=== PATIENT | male | born 1955 | race Caucasian/White ===

== ENCOUNTER 2019-01-16 03:37 | Emergency (ER) | payer MEDICARE, OTHER ==
[~2019-01-16] VITALS: Ht 180.3 cm; Wt 73.0 kg
[~2019-01-16 03:37] MED LIST: PIMO2TAB3 PO
[2019-01-16 03:58] VITALS: BP 135/101
[2019-01-16] MEDS ORDERED: meclizine 12.5mg tablet PO ONE (04:05)
[2019-01-16] MEDS ORDERED: ondansetron 4mg rapidly disintigrating tab PO ONE (04:05)
[2019-01-16] MEDS ORDERED: MECL12.584 PO (04:07)
== END 2019-01-16 04:34 | disposition home or self-care (01) ==
LOC: ER 03:39
DX: H81.10 Benign paroxysmal vertigo, unspecified ear (principal); M19.90 Unspecified osteoarthritis, unspecified site; Z79.899 Other long term (current) drug therapy; Z59.0 Homelessness
CPT/HCPCS: 93005; 99283; J8597

== ENCOUNTER 2021-02-19 19:13 | Emergency (ER) | payer BC, MEDICARE ==
[~2021-02-19] VITALS: Ht 180.3 cm; Wt 67.3 kg
[~2021-02-19 19:13] MED LIST changes: +MECL-226 PO
[2021-02-19 23:26] VITALS: BP 143/86
== END 2021-02-19 23:49 | disposition home or self-care (01) ==
LOC: ER 19:15
DX: M79.672 Pain in left foot (principal); M19.90 Unspecified osteoarthritis, unspecified site; Z87.01 Personal history of pneumonia (recurrent); Z79.899 Other long term (current) drug therapy; Z85.51 Personal history of malignant neoplasm of bladder; Z59.0 Homelessness
CPT/HCPCS: 73610; 99283

== ENCOUNTER 2021-04-19 09:11 | Emergency (ER) | payer BC, MEDICARE ==
[~2021-04-19] VITALS: Ht 180.3 cm; Wt 65.8 kg
[2021-04-19 09:33] VITALS: BP 147/100
[2021-04-19] MEDS ORDERED: meclizine 12.5mg tablet PO ONE (10:00)
[2021-04-19] MEDS ORDERED: ondansetron 4mg rapidly disintigrating tab PO ONE (10:00)
== END 2021-04-19 10:39 | disposition home or self-care (01) ==
LOC: ER 09:11
DX: R42 Dizziness and giddiness (principal); F17.210 Nicotine dependence, cigarettes, uncomplicated; R11.0 Nausea; Z56.0 Unemployment, unspecified
CPT/HCPCS: 93005; 99283; J8597

== ENCOUNTER 2021-04-24 15:44 | Emergency (ER) | payer BC ==
[~2021-04-24] VITALS: Ht 180.3 cm; Wt 67.3 kg
[2021-04-24 16:14] VITALS: BP 134/92
[2021-04-24] MEDS ORDERED: ondansetron 4mg rapidly disintigrating tab PO ONE (18:35)
[2021-04-24] MEDS ORDERED: meclizine 12.5mg tablet PO ONE (18:35)
== END 2021-04-25 05:55 | disposition home or self-care (01) ==
LOC: ER 15:45
DX: R42 Dizziness and giddiness (principal); M19.90 Unspecified osteoarthritis, unspecified site; Z87.01 Personal history of pneumonia (recurrent); Z60.2 Problems related to living alone; Z59.0 Homelessness; Z79.899 Other long term (current) drug therapy
CPT/HCPCS: 99283; J8597; 93005

== ENCOUNTER → 2021-05-28 | Emergency (ER) | payer BC ==
[~2021-05-28] VITALS: Ht 180.3 cm; Wt 68.0 kg
[~2021-05-28] MED LIST changes: +NO HOME MEDS
[2021-05-28 23:37] VITALS: BP 137/85
== END | disposition left against medical advice (07) ==
LOC: ER 23:33
DX: R42 Dizziness and giddiness (principal); Z53.21 Procedure and treatment not carried out due to patient leaving prior to being seen by health care provider

== ENCOUNTER 2021-06-20 13:51 | Emergency (ER) | payer BC ==
[~2021-06-20] VITALS: Ht 180.3 cm; Wt 65.0 kg
[2021-06-20 18:27] VITALS: BP 148/93
[2021-06-21] MEDS ORDERED: MECL-226 PO (01:13)
[2021-06-21] MEDS ORDERED: NAPR-56 PO (01:13)
[2021-06-21] MEDS ORDERED: ONDA4TAB6 PO (01:13)
== END 2021-06-20 20:04 | disposition left against medical advice (07) ==
LOC: ER 13:51
DX: R10.32 Left lower quadrant pain (principal); R42 Dizziness and giddiness; R11.0 Nausea; K46.9 Unspecified abdominal hernia without obstruction or gangrene; Z53.21 Procedure and treatment not carried out due to patient leaving prior to being seen by health care provider

== ENCOUNTER 2021-06-20 22:24 | Emergency (ER) | payer BC ==
[~2021-06-20] VITALS: Ht 180.3 cm; Wt 63.3 kg
[2021-06-20 22:29] VITALS: BP 132/79
[2021-06-21] MEDS ORDERED: naproxen 500mg tablet PO ONE (01:10)
[2021-06-21] MEDS ORDERED: meclizine 12.5mg tablet PO ONE (01:10)
[2021-06-21] MEDS ORDERED: ondansetron 4mg rapidly disintigrating tab PO ONE (01:10)
[2021-06-21] MEDS ORDERED: ONDA4TAB6 PO (01:13)
[2021-06-21] MEDS ORDERED: MECL-226 PO (01:13)
[2021-06-21] MEDS ORDERED: NAPR-56 PO (01:13)
== END 2021-06-21 01:25 | disposition home or self-care (01) ==
LOC: ER 22:25
DX: K40.90 Unilateral inguinal hernia, without obstruction or gangrene, not specified as recurrent (principal); G89.29 Other chronic pain; F17.200 Nicotine dependence, unspecified, uncomplicated; Z76.0 Encounter for issue of repeat prescription; Z59.0 Homelessness
CPT/HCPCS: 99284; J8597

== ENCOUNTER 2022-06-14 14:12 | Emergency (ER) | payer BC ==
[~2022-06-14] VITALS: Ht 180.3 cm; Wt 67.3 kg
[~2022-06-14 14:12] MED LIST changes: -NO HOME MEDS; +ONDA4TAB6 PO; -PIMO2TAB3 PO
[2022-06-14 16:02] LABS: URINE AMPHETAMINE SCREEN NEGATIVE (Neg); URINE BARBITUATE SCREEN NEGATIVE (Neg); URINE BENZODIAZEPINES SCREEN NEGATIVE (Neg); URINE CANNABINOID SCREEN NEGATIVE (Neg); URINE COCAINE SCREEN NEGATIVE (Neg); URINE METHADONE SCREEN NEGATIVE (Neg); URINE OPIATE SCREEN NEGATIVE (Neg); URINE PHENCYCLIDINE SCREEN NEGATIVE (Neg)
[2022-06-14 16:06] LABS: CLARITY,URINE SLIGHTLY CLOUDY (Clear); GLUCOSE, URINE NEGATIVE (Neg); KETONES,URINE NEGATIVE (Neg); LEUKOCYTE ESTERASE ,URINE TRACE (Neg); NITRITES, URINE NEGATIVE (Neg); OCCULT BLOOD,URINE NEGATIVE (Neg); PH,URINE 5.5 (4.8-8.0); PROTEIN,URINE TRACE mg/dl (Neg); UROBILINOGEN,URINE 0.2 E.U/dL (0.2-1.0)
[2022-06-14 16:07] LABS: COLOR,URINE DARK YELLOW (Yellow); UA COLLECTION TYPE VOIDED
[2022-06-14 16:12] LABS: BASOPHILS % (AUTO) 0.7 % (0-1); EOSINOPHILS % (AUTO) 0.7 % (0-6); HEMOGLOBIN 12.6 g/dl (14.0-17.9); LYMPHOCYTES # (AUTO) 1.2 X10'3 (1.1-4.8); LYMPHOCYTES % (AUTO) 18.9 % (21-51); MEAN CORPUSCULAR HEMOGLOBIN 30.9 PG (27.0-31.0); MEAN CORPUSCULAR HGB CONC 33.2 g/dL (33.0-36.5); MEAN PLATELET VOLUME 7.4 FL (7.4-10.4); MONOCYTES # (AUTO) 0.6 X10'3 (0-0.9); MONOCYTES % (AUTO) 9.6 % (2-12); NEUTROPHILS # (AUTO) 4.6 X10'3 (1.8-7.7); NEUTROPHILS % (AUTO) 70.1 % (42-75); PLATELET COUNT 251 X10'3 (140-440); RED BLOOD COUNT 4.08 X10'6 (4.70-6.10); WHITE BLOOD COUNT 6.6 X10'3 (4.5-11.0)
[2022-06-14 16:14] LABS: BACTERIA,URINE FEW /HPF (Neg); CELLULAR CAST 0-4 /LPF (NEGATIVE); FINE GRANULAR CAST 0-3 /LPF (NEGATIVE); HYALINE CASTS 0-3 /LPF (NEGATIVE); MUCUS STRANDS MODERATE /LPF (Neg); RBC,URINE NONE SEEN /HPF (0-2); SQUAMOUS EPITHELIAL CELL,UR FEW /LPF (FEW)
[2022-06-14 16:25] LABS: ALANINE AMINOTRANSFERASE 17 U/L (12-78); ALBUMIN 3.8 G/DL (3.4-5.0); ALKALINE PHOSPHATASE 103 IU/L (46-116); ANION GAP 6 (8-16); ASPARTATE AMINO TRANSFERASE 13 U/L (10-37); BILIRUBIN,TOTAL 0.5 MG/DL (0.1-1.0); BLOOD UREA NITROGEN 21 MG/DL (7-18); BUN/CREATININE RATIO 16.9 (5.4-32.0); CALCIUM 8.8 MG/DL (8.5-10.1); CHLORIDE 106 MMOL/L (99-107); CREATININE 1.24 MG/DL (0.60-1.10); GLUCOSE 82 MG/DL (70-104); POTASSIUM 3.7 MMOL/L (3.5-5.1); SODIUM 141 MMOL/L (135-145); TOTAL CARBON DIOXIDE 28.6 MMOL/L (24-32); TOTAL PROTEIN 7.6 G/DL (6.4-8.2); eGFR 58 ML/MIN
[2022-06-14 16:39] LABS: ETHANOL < 0.010 GM/DL (0.0-0.010)
[2022-06-14] MEDS ORDERED: sulfamethoxazole/trimethoprim DS (800/160mg) tablet PO ONE (17:10)
--- NOTE | 2022-06-14 18:39 | NUR ---
Received pt from main ER to bed 26.
--- NOTE | 2022-06-14 19:14 | NUR ---
pt mental health packet was faxed
--- NOTE | 2022-06-14 19:27 | NUR ---
Pt is homeless and took a [employer] bus from [place]. Pt is hyper verbal talking about his dying 10 years ago from bladder CA and he was trying to meet up with some friends to eat at [employer] or [employer] and someone called him a "grant." That upset him. He denies MH symptoms at this time.
--- NOTE | 2022-06-14 20:00 | NUR ---
Pt appears to be sleeping.
--- NOTE | 2022-06-14 22:57 | NUR ---
Pt appears to be sleeping.
--- NOTE | 2022-06-15 02:04 | NUR ---
Pt appears to be sleeping.
--- NOTE | 2022-06-15 05:04 | NUR ---
Pt up to the restroom, back to bed resting.
[2022-06-15 05:08] VITALS: BP 125/70
--- NOTE | 2022-06-15 06:23 | NUR ---
Patient sleeping supine. No distress observed. Continue to monitor.
--- NOTE | 2022-06-15 08:19 | NUR ---
Patient eating breakfast. No distress observed. Continue to monitor.
--- NOTE | 2022-06-15 10:10 | NUR ---
Patient sleeping. No distress observed. Continue to monitor.
--- NOTE | 2022-06-15 11:40 | NUR ---
Chelsey CEJA, evaluating patient. No distress observed. Continue to monitor.
== END 2022-06-15 13:33 ==
LOC: ER 14:14
DX: R45.850 Homicidal ideations (principal); F32.9 Major depressive disorder, single episode, unspecified; Z59.00 Homelessness unspecified
CPT/HCPCS: 36415; 80053; 80305; 80320; 81001; 84443; 85025; 93005; 99285

== ENCOUNTER 2022-06-20 08:39 | Emergency (ER) | payer BC ==
[~2022-06-20] VITALS: Ht 180.3 cm; Wt 67.3 kg
[2022-06-20 08:42] VITALS: BP 114/89
[2022-06-20] MEDS ORDERED: meclizine 12.5mg tablet PO ONE (10:45)
[2022-06-20] MEDS ORDERED: proCHLORperazine 10mg tablet PO ONE (10:45)
[2022-06-20] MEDS ORDERED: acetaminophen 325mg tablet PO ONE (10:45)
== END 2022-06-20 11:31 | disposition home or self-care (01) ==
LOC: ER 08:40
DX: R11.2 Nausea with vomiting, unspecified (principal); R42 Dizziness and giddiness; R19.7 Diarrhea, unspecified; R51.9 Headache, unspecified; Z59.00 Homelessness unspecified; Z79.899 Other long term (current) drug therapy
CPT/HCPCS: 99284; J8597; Q0164

== ENCOUNTER 2022-07-01 17:47 | Emergency (ER) | payer BC ==
[~2022-07-01] VITALS: Ht 180.3 cm; Wt 67.3 kg
[2022-07-01 17:55] VITALS: BP 130/87
[2022-07-01] MEDS ORDERED: proMETHazine 25mg tablet PO ONE (19:55)
[2022-07-01] MEDS ORDERED: PROM25TA14 PO (21:40)
== END 2022-07-01 21:47 | disposition home or self-care (01) ==
LOC: ER 17:48
DX: R42 Dizziness and giddiness (principal); R11.2 Nausea with vomiting, unspecified; R19.7 Diarrhea, unspecified; G43.909 Migraine, unspecified, not intractable, without status migrainosus; M19.90 Unspecified osteoarthritis, unspecified site; Z87.01 Personal history of pneumonia (recurrent); Z59.00 Homelessness unspecified; Z79.899 Other long term (current) drug therapy
CPT/HCPCS: 93005; 99283; Q0169

== ENCOUNTER 2022-07-15 11:08 | Emergency (ER) | payer BC ==
[~2022-07-15] VITALS: Ht 180.3 cm; Wt 67.3 kg
[~2022-07-15 11:08] MED LIST changes: +PROM25TA14 PO
[2022-07-15 11:36] VITALS: BP 139/94
[2022-07-15] MEDS ORDERED: meclizine 12.5mg tablet PO ONE (11:40)
[2022-07-15] MEDS ORDERED: ondansetron 4mg rapidly disintigrating tab PO ONE (11:40)
[2022-07-15] MEDS ORDERED: MECL-159 PO (12:30)
[2022-07-15] MEDS ORDERED: ONDA4TAB12 PO (12:30)
[2022-07-15] MEDS ORDERED: DIAZ5TAB22 PO (12:30)
== END 2022-07-15 13:21 | disposition home or self-care (01) ==
LOC: ER 11:09
DX: G43.909 Migraine, unspecified, not intractable, without status migrainosus (principal); M19.90 Unspecified osteoarthritis, unspecified site; Z59.00 Homelessness unspecified
CPT/HCPCS: 70450; 99284; J8597

== ENCOUNTER 2022-08-04 17:12 | Emergency (ER) | payer BC ==
[~2022-08-04] VITALS: Ht 180.3 cm; Wt 63.6 kg
[~2022-08-04 17:12] MED LIST changes: +DIAZ5TAB22 PO; +MECL-159 PO; +ONDA4TAB12 PO
[2022-08-04 17:22] VITALS: BP 121/101
[2022-08-04] MEDS ORDERED: ondansetron 4mg rapidly disintigrating tab PO ONE (19:40)
== END 2022-08-04 20:01 | disposition home or self-care (01) ==
LOC: ER 17:12
DX: R11.0 Nausea (principal); T60.4X1A Toxic effect of rodenticides, accidental (unintentional), initial encounter; G43.909 Migraine, unspecified, not intractable, without status migrainosus; M19.90 Unspecified osteoarthritis, unspecified site; F17.200 Nicotine dependence, unspecified, uncomplicated; Z87.01 Personal history of pneumonia (recurrent); Z60.2 Problems related to living alone; Z59.00 Homelessness unspecified; Z79.899 Other long term (current) drug therapy; Y92.89 Other specified places as the place of occurrence of the external cause; Y93.89 Activity, other specified; Y99.8 Other external cause status
CPT/HCPCS: 99283

== ENCOUNTER 2024-07-30 04:29 | Emergency (ER) | payer BC ==
[~2024-07-30] VITALS: Ht 182.9 cm; Wt 77.3 kg
[~2024-07-30 04:29] MED LIST changes: -DIAZ5TAB22 PO; -MECL-159 PO; +MECL-302 PO; +ONDA-243 PO; -ONDA4TAB12 PO
[2024-07-30 06:09] LABS: BASOPHILS # (AUTO) 0.1 X10'3 (0-0.2); BASOPHILS % (AUTO) 0.9 % (0-1); EOSINOPHILS # (AUTO) 0.2 X10'3 (0-0.9); EOSINOPHILS % (AUTO) 3.4 % (0-6); HEMATOCRIT 29.5 % (42.0-52.0); HEMOGLOBIN 9.5 g/dl (14.0-17.9); LYMPHOCYTES # (AUTO) 1.2 X10'3 (1.1-4.8); LYMPHOCYTES % (AUTO) 20.7 % (21-51); MEAN CORPUSCULAR HEMOGLOBIN 27.1 PG (27.0-31.0); MEAN CORPUSCULAR HGB CONC 32.2 g/dL (33.0-36.5); MEAN PLATELET VOLUME 7.3 FL (7.4-10.4); MONOCYTES # (AUTO) 0.6 X10'3 (0-0.9); MONOCYTES % (AUTO) 9.4 % (2-12); NEUTROPHILS # (AUTO) 3.9 X10'3 (1.8-7.7); NEUTROPHILS % (AUTO) 65.6 % (42-75); PLATELET COUNT 282 X10'3 (140-440); RED BLOOD COUNT 3.51 X10'6 (4.70-6.10); RED CELL DISTRIBUTION WIDTH 17.7 % (11.5-14.5)
[2024-07-30 06:15] LABS: ALBUMIN 3.2 G/DL (3.4-5.0); ANION GAP 7 (8-16); BLOOD UREA NITROGEN 33 MG/DL (7-18); BUN/CREATININE RATIO 22.8 (10.0-20.0); CALCIUM 8.6 MG/DL (8.5-10.1); CHLORIDE 108 MMOL/L (99-107); CREATININE 1.45 MG/DL (0.60-1.10); GLUCOSE 107 MG/DL (70-104); POTASSIUM 4.3 MMOL/L (3.5-5.1); PRO BRAIN NATRIURETIC PEPTIDE 411 PG/ML (0-125); SODIUM 144 MMOL/L (135-145); TOTAL CARBON DIOXIDE 28.6 MMOL/L (24-32); eCRCL 53 ML/MIN; eGFR 48 ML/MIN
[2024-07-30 07:32] VITALS: BP 139/86; PULSE 74; RESP 16; TEMP 98.9; O2SAT 95
== END 2024-07-30 07:36 | disposition home or self-care (01) ==
LOC: ER 04:29
DX: R06.02 Shortness of breath (principal); G43.909 Migraine, unspecified, not intractable, without status migrainosus; M19.90 Unspecified osteoarthritis, unspecified site; Z79.899 Other long term (current) drug therapy; Z60.2 Problems related to living alone; Z59.00 Homelessness unspecified
CPT/HCPCS: 36415; 71045; 80048; 83880; 84145; 84484; 85025; 99284

== ENCOUNTER 2024-08-11 11:23 | Emergency (ER) | payer BC ==
[~2024-08-11] VITALS: Ht 182.9 cm; Wt 55.0 kg
[2024-08-11 11:43] VITALS: TEMP 98
[2024-08-11 12:47] LABS: BASOPHILS # (AUTO) 0.1 X10'3 (0-0.2); BASOPHILS % (AUTO) 0.8 % (0-1); EOSINOPHILS # (AUTO) 0.1 X10'3 (0-0.9); EOSINOPHILS % (AUTO) 1.4 % (0-6); HEMATOCRIT 32.5 % (42.0-52.0); HEMOGLOBIN 10.3 g/dl (14.0-17.9); LYMPHOCYTES # (AUTO) 1.4 X10'3 (1.1-4.8); LYMPHOCYTES % (AUTO) 15.4 % (21-51); MEAN CORPUSCULAR HEMOGLOBIN 26.9 PG (27.0-31.0); MEAN CORPUSCULAR HGB CONC 31.6 g/dL (33.0-36.5); MEAN PLATELET VOLUME 7.6 FL (7.4-10.4); MONOCYTES # (AUTO) 0.8 X10'3 (0-0.9); NEUTROPHILS # (AUTO) 6.6 X10'3 (1.8-7.7); NEUTROPHILS % (AUTO) 73.4 % (42-75); PLATELET COUNT 365 X10'3 (140-440); RED BLOOD COUNT 3.82 X10'6 (4.70-6.10); RED CELL DISTRIBUTION WIDTH 18.6 % (11.5-14.5); WHITE BLOOD COUNT 8.9 X10'3 (4.5-11.0)
[2024-08-11 12:59] LABS: GLUCOSE 77 MG/DL (70-104); POTASSIUM 4.1 MMOL/L (3.5-5.1); SODIUM 139 MMOL/L (135-145)
[2024-08-11 13:00] LABS: ALANINE AMINOTRANSFERASE 22 U/L (12-78); ALBUMIN 3.5 G/DL (3.4-5.0); ALBUMIN/GLOBULIN RATIO 0.8 (1.1-1.5); ALKALINE PHOSPHATASE 91 IU/L (46-116); ANION GAP 11 (8-16); ASPARTATE AMINO TRANSFERASE 69 U/L (10-37); BILIRUBIN,TOTAL 0.8 MG/DL (0.1-1.0); BLOOD UREA NITROGEN 29 MG/DL (7-18); BUN/CREATININE RATIO 22.3 (10.0-20.0); CALCIUM 8.8 MG/DL (8.5-10.1); CHLORIDE 105 MMOL/L (99-107); LIPASE 44 U/L (16-77); TOTAL CARBON DIOXIDE 23.2 MMOL/L (24-32); eCRCL 42 ML/MIN; eGFR 55 ML/MIN
[2024-08-11 13:22] LABS: ANISOCYTOSIS 2+; PLATELET ESTIMATE NORMAL; SCHISTOCYTES FEW
[2024-08-11 13:23] LABS: POLYCHROMASIA FEW
[2024-08-11] MEDS ORDERED: iohexol 300mg/ml 100ml inj. ONE (13:37)
[2024-08-11 14:29] LABS: BILIRUBIN,URINE SMALL (Neg); CLARITY,URINE CLEAR (Clear); COLOR,URINE YELLOW (Yellow); GLUCOSE, URINE NEGATIVE (Neg); KETONES,URINE TRACE mg/dl (Neg); LEUKOCYTE ESTERASE ,URINE NEGATIVE (Neg); NITRITES, URINE NEGATIVE (Neg); OCCULT BLOOD,URINE NEGATIVE (Neg); PROTEIN,URINE TRACE mg/dl (Neg); UROBILINOGEN,URINE 0.2 E.U/dL (0.2-1.0)
[2024-08-11 14:34] LABS: UA COLLECTION TYPE NON-SPECIFIED
[2024-08-11 14:40] LABS: SQUAMOUS EPITHELIAL CELL,UR FEW /LPF (FEW)
[2024-08-11 14:41] LABS: BACTERIA,URINE FEW /HPF (Neg); MUCUS STRANDS FEW /LPF (Neg); RBC,URINE 0-2 /HPF (0-2)
[2024-08-11] MEDS ORDERED: SENN-302 PO (16:59)
[2024-08-11] MEDS ORDERED: POLY119P2 PO (16:59)
[2024-08-11 17:12] VITALS: BP 134/90; PULSE 89; RESP 16; O2SAT 96
== END 2024-08-11 17:15 | disposition home or self-care (01) ==
LOC: ER 11:24
DX: K59.00 Constipation, unspecified (principal); R10.30 Lower abdominal pain, unspecified; G43.909 Migraine, unspecified, not intractable, without status migrainosus; M19.90 Unspecified osteoarthritis, unspecified site; Z79.899 Other long term (current) drug therapy
CPT/HCPCS: 36415; 74177; 80053; 81001; 83690; 85008; 85025; 87088; 99285; Q9967

== ENCOUNTER 2024-08-15 14:46 | Emergency (ER) | payer BC ==
[~2024-08-15] VITALS: Ht 182.9 cm; Wt 55.0 kg
[~2024-08-15 14:46] MED LIST changes: +POLY119P2 PO; +SENN-302 PO
[2024-08-15] MEDS: ibuprofen tablet 400 MG TABLET PO ONE (15:33)
[2024-08-15] MEDS: ibuprofen 200mg tablet PO ONE (15:42)
[2024-08-15 16:30] VITALS: BP 119/80; PULSE 66; RESP 15; TEMP 97.9; O2SAT 98
== END 2024-08-15 16:33 | disposition home or self-care (01) ==
LOC: ER 14:48
DX: S00.33XA Contusion of nose, initial encounter (principal); G43.909 Migraine, unspecified, not intractable, without status migrainosus; M19.90 Unspecified osteoarthritis, unspecified site; Z79.899 Other long term (current) drug therapy; X58.XXXA Exposure to other specified factors, initial encounter; Y93.89 Activity, other specified; Y92.89 Other specified places as the place of occurrence of the external cause; Y99.8 Other external cause status
CPT/HCPCS: 70160; 99283